=== PATIENT | female | born 1990 | race African-American/Black ===

== ENCOUNTER 2021-01-18 13:34 | Emergency (ER) | payer OTHER, MEDICAID | END 2021-01-18 15:42 | disposition home or self-care (01) | LOC: CSHERS 13:34 | DX: J02.9 Acute pharyngitis, unspecified (principal) | CPT/HCPCS: 87081; 87430; 99283 ==

== ENCOUNTER 2021-06-02 23:11 | Day surgery (SDC) | payer OTHER ==
[2021-06-02 23:36] VITALS: BMI 27.1
[2021-06-03] MEDS ORDERED: hydrALAZINE 20 MG/ML VIAL SLOW IVP PRN (00:29)
[2021-06-03 00:37] LABS: Bilirubin Neg (Negative); Blood, Urine 250 (Negative); Clarity Clear (Clear); Glucose, Urine (Dipstick) Normal (Negative); Ketone, Urine Negative (Negative); Leukocyte Negative (Negative); Nitrite Negative (Negative); Protein, Urine (Dipstick) Negative (Neg-Trace); Specific Gravity, Urine 1.005 (1.002-1.036); Urobilinogen Normal mg/dL (Less than 2)
[2021-06-03 00:39] LABS: Urine Culture Reflex No No
[2021-06-03 00:45] LABS: Squamous Epithelial 0-3 HPF (0-3); WBC/HPF 0-3 HPF (0-3)
[2021-06-03 00:46] LABS: Bacteria/HPF None Seen HPF (None Seen)
[2021-06-03] MEDS ORDERED: Acetaminophen 500 MG TAB PO SCH (01:45)
== END 2021-06-03 02:45 | disposition home or self-care (01) ==
LOC: CSHLD/OP 23:11
PROVIDERS: ATTEND Family Medicine
DX: O26.853 Spotting complicating pregnancy, third trimester (principal); O99.013 Anemia complicating pregnancy, third trimester; D56.3 Thalassemia minor; Z3A.30 30 weeks gestation of pregnancy
CPT/HCPCS: 81001

== ENCOUNTER 2021-08-05 11:14 | Outpatient (CLI) | payer OTHER ==
[2021-08-06 00:07] LABS: SARS-CoV-2 PCR by NAA Not Detected (NotDetected)
== END 2021-08-05 11:15 | disposition home or self-care (01) ==
LOC: CSHLAB 11:14
PROVIDERS: ATTEND Family Medicine
DX: Z20.822 Contact with and (suspected) exposure to COVID-19 (principal)
CPT/HCPCS: U0003; U0005